=== PATIENT | female | born 1995 | race Caucasian/White ===

== ENCOUNTER 2021-07-18 15:00 | Inpatient (IN) | payer MEDICAID ==
[~2021-07-18] VITALS: Ht 160 cm; Wt 77.9 kg
[2021-07-18 15:57] VITALS: BP 109/69
--- NOTE | 2021-07-18 15:57 | NUR ---
ADMIT NOTE: RN received pt. as direct admit from [facility]. Pt. is cooperative with admission process. Pt.'s HR is 166, pt. reports high anxiety. After pt.'s shower RN reassessed pt.'s HR, which came down to 112. Pt. given Ativan 1mg po with moderate effect. Pt. reports she was Dx with depression and anxiety by her therapist 2 years ago. Pt. reports she was dx with fibromyalgia 1 year ago, but dealing with chronic pain for 10 years. Pt. reports she has also been dealing with insomnia for 10 years also. Pt. reports increased SI after she started experiencing withdrawal symptoms after her insurance stopped paying for her Butrans pain patch. Pt. reports that on 07/17 she had a SA by OD of 12 pills of her antidepressant Pristique. Pt. reports increased stressors of her roommate getting a new dog as well as quiting her job to go on disability, but then getting denied SSDI. Pt. reports she has been working at a [employer] shop. Pt. reports she was started on pristique 5 months ago but it has not been very effective. Pt. states that her provider wants to start her on Resulti. Pt. states she will be moving back in with her parents. Physical and 1:1 assessments done. Pt. is A&Ox4 and denies SI/HI, A/V hallucinations. Pt. c/o of 10/10 generalized pain and offered Tylenol 650mg po, but pt. refused, stating that Tylenol is not effective for her pain. Pt. reports no previous SA.
[2021-07-18] MEDS ORDERED: magnesium hydroxide 30ml (MOM) UD suspension PO PRN (16:15)
[2021-07-18] MEDS ORDERED: acetaminophen 325mg tablet PO PRN ×2 (16:15)
[2021-07-18] MEDS ORDERED: loperamide 2mg capsule PO PRN (16:15)
[2021-07-18] MEDS ORDERED: mag hydrox/Alum hydrox/simeth 30ml oral suspension PO PRN (16:15)
[2021-07-18] MEDS: LORazepam 1 MG tablet PO PRN (16:44)
[2021-07-18] MEDS ORDERED: GABA-534 PO (17:31)
[2021-07-18] MEDS ORDERED: ARIP2TAB20 PO (17:31)
[2021-07-18] MEDS ORDERED: GABA600T13 PO (17:31)
[2021-07-18] MEDS ORDERED: DESV100T PO (17:32)
[2021-07-18 19:00] VITALS: BP 95/62
[2021-07-18] MEDS: gabapentin 300mg capsule PO SCH (20:10)
--- NOTE | 2021-07-18 22:57 | NUR ---
Nursing Progress Note Legal hold: 5150 Client on voluntary/involuntary status for DTS. Report received from nurseТатьяна with use of SBAR. Why are they here: Pt brought in on 5150 for dts. Pt attempted suicide by overdosing on her antidepressant. Pt has hx of fibromyalgia. Diagnosis/presenting symptoms: Depression Assessment What has happened this shift: Pt isolated to her room all evening, stating that she is tired from Ativan and from lacking sleep. Pt is friendly and cooperative and accepts hs meds without issue. Pt denies being suicidal but endorses depression. Pt is complaining of chronic pain all over but did not request a prn. S/I, H/I: denies A/VH: denies Sleep: see sleep assessment ADL's: independent Group attendance: n/a Were meds taken: yes Any med S/E: no Mental Status Exam Appearance: wnl, dressed appropriately Eye contact: good Behavior: calm, friendly Speech: clear Mood: relaxed, tired Affect: congruent Thought process: linear Thought Content: getting sleep Cognition: a/o x4 Insight: fair Judgment: poor PRN's used: None Therapeutic interventions: Maintained a safe and supportive environment, provided clear and simple instructions, ensured contract for safety, provided active listening and positive encouragement, monitored anxiety and need for intervention, medication administration/ education, and maintained Q 15min safety checks. Restraints/seclusion/emergency medication: N/A Justification of Continued Inpatient Treatment: Pt. requires interruption of current crisis, medication adjustments, and a safe and therapeutic environment.
[2021-07-19 07:07] VITALS: BP 98/66
[2021-07-19] MEDS ORDERED: DESVENLAFAXINE SUCCINATE PO SCH (08:00)
[2021-07-19] MEDS: gabapentin 400mg capsule PO SCH ×2 (08:44→12:08)
[2021-07-19 11:02] LABS: HEMOGLOBIN A1C 5.1 % (4.5-6.2)
[2021-07-19 11:11] LABS: CHOL/HDL RATIO 3.3 (0.00-4.99); CHOLESTEROL 192 MG/DL (0-200); HDL CHOLESTEROL 58 MG/DL (35-60); LDL CHOLESTEROL 118 MG/DL (50-100); TRIGLYCERIDES 51 MG/DL (20-135)
--- NOTE | 2021-07-19 17:38 | NUR ---
Nursing Progress Note Legal hold: 5150 Client on involuntary status for DTS. Report received from nurse, Antoinette Mann with use of SBAR. Why are they here: Pt brought in on 5150 for dts. Pt attempted suicide by overdosing on her antidepressant Pristique. Pt. reports multiple stressors including chronic pain from fibromyalgia, insomnia, recently being denied dissaibility. Pt. has hx of depression and anxiety. Assessment What has happened this shift: RN received pt. at start of shift. Pt. awoke for breakfast and took medication. 1:1 done at bedside, pt. reports some anxiety but does not want to take anxiolytics for it. Pt. denies all other psych symptoms. Pt. gives minimal information during interview. Pt. isolates to her room most of the shift except to eat meals. Pt. receives multiple phone calls from her parents throughout the day. S/I, H/I: denies A/VH: denies Sleep: Pt. slept 9.5 hrs on NOC shift ADL's: independent Group attendance: n/a Were meds taken: yes Any med S/E: Denies. None observed. Mental Status Exam Appearance: WNL, wearing casual attire. Eye contact: WNL. Behavior: Cooperative, anxious, isolating to her room. Speech: WNL Mood: Anxious Affect: Congruent with mood. Thought process: linear Thought Content: Circumstantial Cognition: A&Ox4 Insight: Fair Judgment: Poor PRN's used: None Therapeutic interventions: Maintained a safe and supportive environment, provided clear and simple instructions, ensured contract for safety, provided active listening and positive encouragement, monitored anxiety and need for intervention, medication administration/ education, and maintained Q 15min safety checks. Restraints/seclusion/emergency medication: N/A Justification of Continued Inpatient Treatment: Pt. requires interruption of current crisis, medication adjustments, and a safe and therapeutic environment.
[2021-07-19 19:00] VITALS: BP 106/68
[2021-07-19] MEDS: LORazepam 1 MG tablet PO PRN (19:57)
[2021-07-19] MEDS: gabapentin 300mg capsule PO SCH (20:00)
--- NOTE | 2021-07-20 00:36 | NUR ---
Nursing Progress Note Legal hold: 5150 Client on voluntary/involuntary status for DTS. Report received from nurseТатьяна with use of SBAR. Why are they here: Pt brought in on 5150 for dts. Pt attempted suicide by overdosing on her antidepressant Pristique. Pt. reports multiple stressors including chronic pain from fibromyalgia, insomnia, recently being denied disability. Pt. has hx of depression and anxiety. Diagnosis/presenting symptoms: Depression Assessment What has happened this shift: Pt isolated to her room all evening again, talking on the phone mostly. Pt was tearful at times. Pt is denying feeling suicidal but does not discuss much about how she is feeling. Pt only has Neurontin scheduled at night, pt requested Ativan for anxiety and to help her sleep. Pt is still reporting that she feels like she is lacking sleep. S/I, H/I: denies A/VH: denies Sleep: see sleep assessment ADL's: independent Group attendance: n/a Were meds taken: yes Any med S/E: no Mental Status Exam Appearance: wnl, dressed appropriately Eye contact: good Behavior: calm, friendly Speech: clear Mood: relaxed, tired Affect: congruent Thought process: linear Thought Content: getting sleep Cognition: a/o x4 Insight: fair Judgment: poor PRN's used: None Therapeutic interventions: Maintained a safe and supportive environment, provided clear and simple instructions, ensured contract for safety, provided active listening and positive encouragement, monitored anxiety and need for intervention, medication administration/ education, and maintained Q 15min safety checks. Restraints/seclusion/emergency medication: N/A Justification of Continued Inpatient Treatment: Pt. requires interruption of current crisis, medication adjustments, and a safe and therapeutic environment.
[2021-07-20 07:09] VITALS: BP 105/68
[2021-07-20] MEDS ORDERED: venlafaxine XR 37.5mg cap (Q24H) PO SCH (08:00)
[2021-07-20] MEDS: gabapentin 400mg capsule PO SCH ×2 (08:21→12:35)
--- NOTE | 2021-07-20 17:26 | NUR ---
Nursing Progress Note Legal hold: 5150 Client on involuntary status for DTS. Report received from nurse, Antoinette Mann with use of SBAR. Why are they here: Pt brought in on 5150 for dts. Pt attempted suicide by overdosing on her antidepressant Pristique. Pt. reports multiple stressors including chronic pain from fibromyalgia, insomnia, recently being denied dissaibility. Pt. has hx of depression and anxiety. Assessment What has happened this shift: RN received pt. asleep in bed at start of shift. Pt. refused Rexulti and Effexor, stating she wants to talk more to her provider today about the medication. Pt. took her Gabapentin, Pt. ate all her meals in the community room. Pt. denies SI/HI, A/V hallucinations, pt. reports some anxiety but does not want PRN medication. Pt. reports she feels the anxiety is less today. Pt. socially withdrawn and isolated to her room for most of the day. RN informed by pt.s provider that the plan is for pt. to be discharged Thursday, 07/21 S/I, H/I: denies A/VH: denies Sleep: Pt. slept 9.25 hrs on NOC shift. Pt. did not appear to nap during the day. ADL's: independent Group attendance: No Were meds taken: Yes Any med S/E: Denies. None observed. Mental Status Exam Appearance: WNL, wearing casual attire. Eye contact: WNL. Behavior: Cooperative, anxious, isolating to her room. Speech: WNL Mood: Anxious, but less today. Affect: Congruent with mood Thought process: linear Thought Content: Circumstantial Cognition: A&Ox4 Insight: Fair Judgment: Poor PRN's used: None Therapeutic interventions: Maintained a safe and supportive environment, provided clear and simple instructions, ensured contract for safety, provided active listening and positive encouragement, monitored anxiety and need for intervention, medication administration/ education, and maintained Q 15min safety checks. Restraints/seclusion/emergency medication: N/A Justification of Continued Inpatient Treatment: Pt. requires interruption of current crisis, medication adjustments, and a safe and therapeutic environment.
[2021-07-20 19:00] VITALS: BP 110/69
[2021-07-20] MEDS: gabapentin 300mg capsule PO SCH (20:10)
[2021-07-20] MEDS: LORazepam 1 MG tablet PO PRN (20:10)
--- NOTE | 2021-07-21 01:26 | NUR ---
Nursing Progress Note Legal hold: 5150 Client on involuntary status for DTS. Report received from EDIE Vaz with use of SBAR. Why are they here: Pt brought in on 5150 for dts. Pt attempted suicide by overdosing on her antidepressant Pristique. Pt. reports multiple stressors including chronic pain from fibromyalgia, insomnia, recently being denied dissaibility. Pt. has hx of depression and anxiety. Assessment What has happened this shift: RN received patient resting in their room at start of shift. Patient affable during interaction, and stated that they only wanted to get some good sleep tonight. Patient accepted all medications and was receptive to PRN ativan for help with anxiety and sleep. Patient was receptive to need for urine catch for test, and spoke with their mother before going to sleep. Patient did not participate in snack time and did not have any new needs or concerns to be addressed. RN informed at shift report that the plan is for pt. to be discharged Thursday, 07/21 S/I, H/I: denies A/VH: denies Sleep: Pt. has been resting in room since 183, asleep since 2099. ADL's: independent Group attendance: No Were meds taken: Yes Any med S/E: Denies. None observed. Mental Status Exam Appearance: WNL, wearing casual attire. Eye contact: WNL. Behavior: Cooperative, anxious, isolating to her room. Speech: WNL Mood: only slightly anxious, hopeful about discharge. Affect: Congruent with mood Thought process: linear Thought Content: Circumstantial Cognition: A&Ox4 Insight: Fair Judgment: Poor PRN's used: Ativan 1mg Therapeutic interventions: established rapport with therapeutic communication, maintained a safe and supportive environment, provided clear and simple instructions, ensured contract for safety, provided active listening and positive encouragement, monitored anxiety and need for intervention, medication administration/ education, and maintained Q 15min safety checks. Restraints/seclusion/emergency medication: N/A Justification of Continued Inpatient Treatment: Pt. requires interruption of current crisis, medication adjustments, and a safe and therapeutic environment, Pt. set to discharge during dayshift.
[2021-07-21] MEDS: gabapentin 400mg capsule PO SCH ×3 (08:19→12:03)
[2021-07-21 08:42] VITALS: BP 99/62
[2021-07-21] MEDS ORDERED: ondansetron 4mg rapidly disintigrating tab PO ONE (14:45)
[2021-07-21] MEDS ORDERED: ATI1T PO (15:18)
[2021-07-21] MEDS ORDERED: ONDA4TAB6 PO (15:18)
--- NOTE | 2021-07-21 16:26 | NUR ---
Discharge Note: D/C 7431 witha her parents via family car Patient received discharge instructions and agrees with the after care plan. patient states she will be going home with her parents and just resting. Patient did have some n/v today as a result from her OD on her medication, patient was given zofran 4mg ODT and was given a rx tohave at home per provider. Follow-Up: Patient has been scheduled/referred to the following providers for post-hospital discharge and aftercare treatment. Psychiatrist: Call to schedule your follow up appointment: [address] Primary Care Provider: Therapist: Call to schedule your follow up appointment: [address] Discharge Address: [address] [place] [address] [address] [place], [place] Transportation: Family Patient given community crisis services information and National suicide hotline handout. Resources for education regarding mental illness: [address] [address] For urgent mental health crisis needs please contact Mobile Crisis Outreach Team Thursday through Thursday 8:30am to 5:00pm. . Mobile Crisis Outreach Team [address] [place] [phone] Urgent Out-patient Mental Health Services 365 Days A Year: [address] [address] Hours: Mon thru Fri 12pm-9pm Weekends 11am-9pm
== END 2021-07-21 15:57 | disposition home or self-care (01) | DRG 754 ==
LOC: ADULT MH 15:00
PROVIDERS: ADMIT Psychiatry & Neurology Psychiatry; ATTEND Psychiatry & Neurology Psychiatry
DX: F32.9 Major depressive disorder, single episode, unspecified (principal); R45.851 Suicidal ideations; F41.9 Anxiety disorder, unspecified; F90.9 Attention-deficit hyperactivity disorder, unspecified type; T50.992A Poisoning by other drugs, medicaments and biological substances, intentional self-harm, initial encounter; M79.7 Fibromyalgia; Z79.899 Other long term (current) drug therapy; Z81.8 Family history of other mental and behavioral disorders; Z83.3 Family history of diabetes mellitus; Y92.89 Other specified places as the place of occurrence of the external cause
CPT/HCPCS: 36415; 80061; 83036; 87081